=== PATIENT | female | born 1945 | race Caucasian/White ===

== ENCOUNTER 2019-04-18 09:13 | Day surgery (SDC) | payer MEDICARE ==
[~2019-04-18 09:13] MED LIST: ACETAMINOPHEN 1,000 MG/100 ML BTL IVPB ONE; CEFAZOLIN 2 Gram 2 GM/50 ML BAG IVPB ONE
[2019-04-18] MEDS ORDERED: PROPOFOL 10 MG/ML VIAL IV ONE (09:14)
[2019-04-18] MEDS ORDERED: ONDANSETRON HCL IV 4 MG/2 ML VIAL IVP ONE (09:14)
[2019-04-18] MEDS ORDERED: EPHEDRINE SULFATE 50 MG/ML ML IV ONE (09:14)
[2019-04-18] MEDS ORDERED: LIDOCAINE 2% MDV (20MG/ML) 20ML VIAL IV ONE (09:14)
[2019-04-18] MEDS ORDERED: FENTANYL PF 100MCG/2ML VIAL IV ONE (09:14)
[2019-04-18] MEDS ORDERED: MIDAZOLAM HCL 2MG/2ML VIAL IV ONE (09:14)
[2019-04-18] MEDS ORDERED: SEVOFLURANE 250 ML INH ONE (09:14)
[2019-04-18] MEDS ORDERED: DEXAMETHASONE 4 MG/ML 1ML VIAL IVP ONE (09:14)
[2019-04-18] MEDS ORDERED: 0.9 % SODIUM CHLORIDE 1000ML 1,000 ML IV ONE (09:47)
[2019-04-18] MEDS ORDERED: RINGERS SOLUTION,LACTATED 1,000 ML IV ONE (11:49)
[2019-04-18] MEDS ORDERED: PHENAZOPYRIDINE HCL 95 MG TABLET PO ONE (12:36)
== END 2019-04-18 13:05 | disposition home or self-care (01) ==
LOC: SUR 09:13
PROVIDERS: ATTEND Urology
DX: N20.1 Calculus of ureter (principal); I10 Essential (primary) hypertension; K21.9 Gastro-esophageal reflux disease without esophagitis
CPT/HCPCS: 93005; J2405; J7030; J7120